=== PATIENT | male | born 1935 | race Caucasian/White ===

== ENCOUNTER → 2016-04-13 | Outpatient (CLI) | payer OTHER, MEDICARE, BC ==
[~2016-04-13] MED LIST: ACHYD1T PO; ASPI325T32 PO; BRIM5DRO OU; CATHETER FLUSH 10 ML SYR IV PRN; CIPR500T78 PO; DILT-8 PO; GLUC-96 PO; HYOS0.1216 PO; IOHEXOL 350 MG/ML 150 ML (OMNIPAQUE 350) VIAL IV ONE; MULT-974 PO; NS 100 ML (IVPB) BAG IV ONE; OMEG10005 PO; PHEN200T27 PO
--- OUTSIDE RECORDS SUMMARY | 2016-04-13 08:43 | XMS REPORT | Continuity of Care Document ---
Author Author [facility] Organization [facility] Address Unknown Phone Unavailable Support Name Relationship Address Phone DAYNA MANSFIELD MD Caregiver [address] [place] [address] HONORIO HALEY MD Caregiver [address] [place] [address] BEAU QUIÑONES Next Of Kin [address] [place] [address] Insurance Providers Payer Name Policy Number Subscriber Name Relationship [facility] [id number] Bakari Quiñones Jr 20 Self / Same As Patient [employer] [id number] Bakari Quiñones Jr 20 Self / Same As Patient Advance Directives Directive Response Recorded Date/Time Advance Directives Yes 02/14/14 7:20am Health Care Power of Glazier Artist No 02/14/14 7:20am Organ Donor No 02/14/14 7:20am Resuscitation Status Full Code 02/14/14 7:20am Problems No known problems or medical conditions. Medications Medication Dose Route Sig Days/Qty Instructions Order Date Discontinued Date Status Diltiazem Hcl 120 Mg PO DAILY 02/04/14 Active Aspirin 325 Mg PO DAILY 02/04/14 02/14/14 Discontinued Glucosa Jackson 2KCL/Chondroitin Jackson 2 Tab PO DAILY 02/04/14 Active Multivitamin 1 Each PO DAILY 02/04/14 Active [place]-3 Fatty Acids 2,000 Mg PO DAILY 02/04/14 Active Brimonidine Tartrate/Timolol 1 Drop OU TWICE A DAY 02/04/14 Active Ciprofloxacin HCl 500 Mg PO TWICE A DAY 14 Qty 02/14/14 Active Phenazopyridine HCl 1 Each PO TID PRN 30 Qty 02/14/14 Active Hyoscyamine Sulfate 1 Each PO Q4HR PRN 30 Qty 02/14/14 Active Acetaminophen/Hydrocodone Bitart 1-2 Tab PO EVERY 4HRS 30 Qty 02/14/14 Active Social History Social History Problem Response Recorded Date/Time Recent Foreign Travel No 02/14/2014 7:17am Smoking Status Never a Smoker 02/14/2014 7:07am Do you dip or chew tobacco? No 02/14/2014 7:07am Query Response Start Date Stop Date Smoking Status Never a Smoker Hospital Discharge Instructions No hospital discharge instructions. Plan of Care No plan of care. Functional Status No functional status results. Allergies, Adverse Reactions, Alerts Allergen Type Severity Reaction Status Last Updated No Known Allergies ([id number]) Allergy Unknown Active 12/13/13 Immunizations No immunization records. Vital Signs Acute Vital Signs Vital Response Date/Time Temperature (Fahrenheit) 97.1 degrees F (97.6 - 99.5) Temperature (Calculated Celsius) 36.28332 degrees C (36.4 - 37.5) Temperature Source Temporal Pulse Rate (adult) 80 bpm (60 - 90) Respiratory Rate 16 bpm (12 - 24) O2 Sat by Pulse Oximetry 95 % (88 - 100) Blood Pressure 142/73 mm Hg Pain Pain Intensity 2 Height (Feet) 5 feet Height (Inches) 10.00 inches Height (Calculated Centimeters) 177.737160 cm Weight (Pounds) 227 pounds Weight (Calculated Grams) 448553.469 gm Weight (Calculated Kilograms) 102.527869 kilograms Height 5 ft 10 in Weight 227 lb Body Mass Index 32.6 kg/m^2 Results No known relevant diagnostic tests, laboratory data and/or discharge summary. Procedures Procedure Status Date Provider(s) Tracing only of electrocardiogram completed 02/04/14 ALEJANDRA DING CRNA Encounters Encounter Location Date/Time Registered Surgical Day Care [facility] 02/14/14 5:44am Registered Clinic [facility] 02/04/14 2:16pm
--- NOTE | 2016-04-13 11:17 | Diagnostic Imaging Report ---
PROCEDURE: CT angiography of the chest with contrast. TECHNIQUE: Multiple contiguous axial images were obtained through the chest after uneventful bolus administration of intravenous contrast. Reconstructed CTA MIP acquisitions were also performed. INDICATION: Ascending aortic dilatation. COMPARISON: There are no previous studies available for comparison. FINDINGS: The root of the ascending aorta is somewhat ectatic. The axial images reveal that the root measures 3.0 x 4.4 cm maximum AP and transverse diameters. However, on the coronal images, the root of the aorta measures only 3.9 cm. Therefore, I do feel that the transverse measurement on the axial series is slightly exaggerated due to the ectasia. Even so, the midportion of the ascending aorta is dilated measuring 4.1 x 4.2 cm in maximum AP and transverse diameters. The descending thoracic aorta is normal in caliber measuring 2.7 x 2.8 cm. There is no sign of dissection of the aorta. The heart is borderline enlarged. There are coronary artery calcifications involving the LAD. There is no defect within the pulmonary arteries to indicate a pulmonary embolus. There are chronic pulmonary changes evident including a thick band of scar formation in the periphery of the right midlung. There is also evidence of emphysematous disease in the lung bases and there are a few benign-appearing pneumatoceles in the periphery of the left lower lobe. There is no sign of failure, pneumonia or pleural effusion to suggest an acute abnormality. The thyroid gland is mildly enlarged and the left lobe of the thyroid does extend into the substernal space. The sections through the upper abdomen show that the liver is of lower density than usually seen. This does suggest fatty metamorphosis. There is no acute abnormality of the visualized upper abdomen. The bone windows are unremarkable for an acute fracture or for destructive lesion. There are several healed rib fractures on the left. IMPRESSION: 1. There is no evidence for an acute cardiopulmonary abnormality. 2. The root of the aorta measures 3.0 x 4.4 cm in maximum AP and transverse diameters. The transverse measurement however may be slightly exaggerated due to the ectasia of the aortic root. 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 The aorta in this area measures 4.1 x 4.2 cm. There is no acute abnormality of the aorta. 3. There is borderline cardiomegaly and coronary artery disease. 4. There is chronic pulmonary artery disease. 5. The thyroid gland is enlarged. Dictated by: Dictated on workstation # [id number]
== END ==
LOC: RAD 08:39
PROVIDERS: ATTEND Internal Medicine Cardiovascular Disease
DX: I77.810 Thoracic aortic ectasia (principal); I51.9 Heart disease, unspecified; I48.0 Paroxysmal atrial fibrillation; G47.33 Obstructive sleep apnea (adult) (pediatric); E66.9 Obesity, unspecified
CPT/HCPCS: 71275

== ENCOUNTER → 2016-04-14 | Outpatient (CLI) | payer OTHER, MEDICARE, BC ==
[~2016-04-14] MED LIST changes: -CATHETER FLUSH 10 ML SYR IV PRN; -IOHEXOL 350 MG/ML 150 ML (OMNIPAQUE 350) VIAL IV ONE; -NS 100 ML (IVPB) BAG IV ONE
--- OUTSIDE RECORDS SUMMARY | 2016-04-14 08:09 | XMS REPORT | Continuity of Care Document ---
Author Author [facility] Organization [facility] Address Unknown Phone Unavailable Support Name Relationship Address Phone DAYNA MANSFIELD MD Caregiver [address] [place] [address] HONORIO HALEY MD Caregiver [address] [place] [address] BEAU QUIÑONES Next Of Kin [address] [place] [address] Insurance Providers Payer Name Policy Number Subscriber Name Relationship [facility] [id number] Bakari Quiñones Jr 20 Self / Same As Patient [employer] [id number] Bakari Quiñones Jr 20 Self / Same As Patient Advance Directives Directive Response Recorded Date/Time Advance Directives Yes 02/14/14 7:20am Health Care Power of Police Crime Scene Technician No 02/14/14 7:20am Organ Donor No 02/14/14 [...] Multivitamin 1 Each PO DAILY 02/04/14 Active [place]-3 Fatty Acids 2,000 Mg PO DAILY 02/04/14 [...] Reaction Status Last Updated No Known Allergies ([id number]) Allergy Unknown Active 12/13/13 Immunizations No immunization records. Vital Signs Acute Vital Signs Vital Response Date/Time Temperature (Fahrenheit) 97.1 degrees F (97.6 - 99.5) Temperature (Calculated Celsius) 36.74888 degrees C (36.4 - 37.5) Temperature Source Temporal Pulse Rate (adult) 80 bpm (60 - 90) Respiratory Rate 16 bpm (12 - 24) O2 Sat by Pulse Oximetry 95 % (88 - 100) Blood Pressure 142/73 mm Hg Pain Pain Intensity 2 Height (Feet) 5 feet Height (Inches) 10.00 inches Height (Calculated Centimeters) 177.413147 cm Weight (Pounds) 227 pounds Weight (Calculated Grams) 066270.469 gm Weight (Calculated Kilograms) 102.339854 kilograms Height 5 ft 10 in Weight 227 lb Body Mass Index 32.6 kg/m^2 Results No known relevant diagnostic tests, laboratory data and/or discharge summary. Procedures Procedure Status Date Provider(s) Tracing only of electrocardiogram completed 02/04/14 ALEJANDRA DING CRNA Encounters Encounter Location Date/Time Registered Surgical Day Care [facility] 02/14/14 5:44am Registered Clinic [facility] 02/04/14 2:16pm
--- NOTE | 2016-04-17 12:39 | ECHOCARDIOGRAPHY REPORT ---
PROCEDURE PHYSICIAN: CARLOS BOOKER DATE OF PROCEDURE: 04/14/2016 TWO DIMENSIONAL ECHOCARDIOGRAM REPORT PRIMARY PHYSICIAN: OTHER PHYSICIAN: REFERRING PHYSICIAN: Dr. Murrieta ORDERING PHYSICIAN: INDICATION FOR THE PROCEDURE: Dilated ascending aorta MEASUREMENTS DERIVED VALUES LV DIAMETER (LAX) NORMALS NORMALS Diastolic 4.2 (3.6-5.2) Eject. Fract. 60% (60%+/-6%) Systolic (2.3-3.9) Diastolic Vol. % Shortening (0.22-0.42) Systolic Vol. Aortic Root IVS THICKNESS Diastolic 1.2 (0.6-1.1) LVPW THICKNESS Diastolic 1. (0.6-1.1) LA DIAMETER Systolic 4, (2.1-3.7) FINDINGS: 1. Technical quality is good. 2. The left ventricle is normal in size with normal contractility. Systolic function appeared to be normal. Estimated ejection fraction 60%. 3. The left atrium is in the upper normal limit in size. No clot or thrombus were seen within the left atrium. 4. The right atrium and right ventricle are normal in size. No clot or thrombus were seen within the right side. 5. Mitral valve is normal in morphology with mild mitral regurgitation noted by color Doppler flow. No mitral valve prolapse. No mitral valve stenosis. 6. Aortic valve is trileaflet with normal opening and closing pattern. No significant aortic stenosis. Mild to moderate aortic regurgitation was noted. 7. Tricuspid valve is normal in morphology with mild tricuspid regurgitation noted by color Doppler flow. Doppler across tricuspid valve estimated pulmonary artery pressure of 23+ right atrial pressure. 8. Pulmonic valve is functioning normally. 9. No pericardial effusion. CONCLUSION: 1. Normal left ventricular size and systolic function. Estimated ejection fraction 60%. 2. Left atrium is in the upper normal limit in size. 3. Mild to moderate aortic regurgitation. Mild mitral regurgitation, mild tricuspid regurgitation. 4. Estimated pulmonary artery pressure of 30 mmHg. Job ID: [id number] Dictated Date: 04/17/2016 09:16:12 Test Operator Date: 04/17/2016 12:36:16 / [email or web address]
== END ==
LOC: CARD 08:08
PROVIDERS: ATTEND Internal Medicine Cardiovascular Disease
DX: I77.810 Thoracic aortic ectasia (principal); I51.9 Heart disease, unspecified; I48.0 Paroxysmal atrial fibrillation; G47.33 Obstructive sleep apnea (adult) (pediatric); E66.9 Obesity, unspecified
CPT/HCPCS: 93306

== ENCOUNTER → 2016-04-25 | Outpatient (CLI) | payer OTHER, MEDICARE ==
[~2016-04-25] MED LIST changes: +CATHETER FLUSH 10 ML SYR IV PRN
--- OUTSIDE RECORDS SUMMARY | 2016-04-25 07:47 | XMS REPORT | Continuity of Care Document ---
Author Author [facility] Organization [facility] Address Unknown Phone Unavailable Support Name Relationship Address Phone DAYNA MANSFIELD MD Caregiver [address] [place] [address] HONORIO HALEY MD Caregiver [address] [place] [address] BEAU QUIÑONES Next Of Kin [address] [place] [address] Insurance Providers Payer Name Policy Number Subscriber Name Relationship [facility] [id number] Bakari Quiñones Jr 20 Self / Same As Patient [employer] Medicare [id number] Bakari Quiñones Jr 20 Self / Same As Patient Advance Directives Directive Response Recorded Date/Time Advance Directives Yes 02/14/14 7:20am Health Care Power of Production Maintenance Mechanic No 02/14/14 7:20am Organ Donor No 02/14/14 [...] Multivitamin 1 Each PO DAILY 02/04/14 Active [place]-3 Fatty Acids 2,000 Mg PO DAILY 02/04/14 [...] Reaction Status Last Updated No Known Allergies ([id number]) Allergy Unknown Active 12/13/13 Immunizations No immunization records. Vital Signs Acute Vital Signs Vital Response Date/Time Temperature (Fahrenheit) 97.1 degrees F (97.6 - 99.5) Temperature (Calculated Celsius) 36.72880 degrees C (36.4 - 37.5) Temperature Source Temporal Pulse Rate (adult) 80 bpm (60 - 90) Respiratory Rate 16 bpm (12 - 24) O2 Sat by Pulse Oximetry 95 % (88 - 100) Blood Pressure 142/73 mm Hg Pain Pain Intensity 2 Height (Feet) 5 feet Height (Inches) 10.00 inches Height (Calculated Centimeters) 177.326052 cm Weight (Pounds) 227 pounds Weight (Calculated Grams) 495998.469 gm Weight (Calculated Kilograms) 102.420410 kilograms Height 5 ft 10 in Weight 227 lb Body Mass Index 32.6 kg/m^2 Results No known relevant diagnostic tests, laboratory data and/or discharge summary. Procedures Procedure Status Date Provider(s) Tracing only of electrocardiogram completed 02/04/14 ALEJANDRA DING CRNA Encounters Encounter Location Date/Time Registered Surgical Day Care [facility] 02/14/14 5:44am Registered Clinic [facility] 02/04/14 2:16pm
[2016-04-25 09:34] VITALS: BP 135/82
--- NOTE | 2016-04-25 18:50 | STRESS TEST ---
PROCEDURE PHYSICIAN: CARLOS BOOKER DATE OF PROCEDURE: 04/25/2016 EXERCISE MYOVIEW STRESS TEST REPORT REFERRING PHYSICIAN: Dr. Berry Murrieta INDICATION: Paroxysmal atrial fibrillation. BASELINE HEART RATE: 55 BASELINE BLOOD PRESSURE: 144/92 BASELINE EKG: Sinus rhythm with no ischemic changes. SUMMARY: The patient was injected with 9.92 mCi of technetium 99 Myoview and the resting images were obtained. Then the patient started exercising with a baseline heart rate, blood pressure and EKG mentioned above. At minute 6, the patient was injected with 32 mCi of technetium 99 Myoview. The patient was able to finish a total 7 minutes, on standard Piotr protocol achieving maximum heart rate of 127, which is 89% of maximum expected heart rate. With peak exercise level, EKG was showing minimal nondiagnostic changes. During recovery, heart rate and blood pressure returned to baseline. EKG returned to baseline. The resting and stress images were reviewed and compared in the short axis, horizontal long axis, and vertical long axis views. Review of the images showed diaphragmatic attenuation affecting the quality of the images. Overall, there is typical female pattern. No significant ischemia or infarction. SSS is 0. TID value 1.04. On the gated images, the left ventricle appeared to be normal size with normal contractility. Calculated ejection fraction 57%. CONCLUSION: 1. Good exercise tolerance a total 7 minutes, on standard Piotr protocol. Total of 10.1 METs, achieving 89% of maximum expected heart rate. 2. Appropriate heart rate and blood pressure response to exercise. Returned to baseline during recovery. 3. Nondiagnostic EKG changes with exercise. Returned to baseline during recovery. 4. And diaphragmatic attenuation with typical male pattern. No significant ischemia or infarction on SPECT images. 5. Normal left ventricular size with normal contractility. Calculated ejection fraction 57%. Job ID: [id number] Dictated Date: 04/25/2016 17:11:58 Lottery Sales Clerk Date: 04/25/2016 18:46:31 / [email or web address]
== END ==
LOC: CARD 07:45
PROVIDERS: ATTEND Internal Medicine Cardiovascular Disease
DX: I77.810 Thoracic aortic ectasia (principal); I51.9 Heart disease, unspecified; I48.0 Paroxysmal atrial fibrillation; G47.33 Obstructive sleep apnea (adult) (pediatric); E66.9 Obesity, unspecified
CPT/HCPCS: 78452; 93017